=== PATIENT | female | born 1985 | race Caucasian/White ===

== ENCOUNTER 2023-08-05 21:51 | Inpatient (IN) | payer OTHER ==
[2023-08-05 23:06] VITALS: BMI 15.5
[2023-08-06] MEDS ORDERED: guaiFENesin 600 MG TABLET.ER (FP) PO PRN (00:04)
[2023-08-06] MEDS ORDERED: IBUPROFEN 400 MG TABLET (FP) PO PRN (00:04)
[2023-08-06] MEDS ORDERED: NICOTINE POLACRILEX 4 MG GUM BUC PRN (00:04)
[2023-08-06] MEDS ORDERED: NALOXONE HCL (KLOXXADO) 8 MG SPRAY NS PRN (00:04)
[2023-08-06] MEDS ORDERED: NALOXONE HCL 0.4 MG/ML VIAL IM PRN (00:04)
[2023-08-06] MEDS ORDERED: BENZOCAINE/MENTHOL (CHLORASEPTIC ) LOZENGE MM PRN (00:04)
[2023-08-06] MEDS ORDERED: DICYCLOMINE HCL 10 MG CAPSULE PO PRN (00:04)
[2023-08-06] MEDS ORDERED: MAGNESIUM HYDROX 2400MG/30ML ORAL SUSPENSION 30 ML CUP PO PRN (00:04)
[2023-08-06] MEDS ORDERED: LOPERAMIDE HCL 2 MG CAPSULE PO PRN (00:04)
[2023-08-06] MEDS ORDERED: ONDANSETRON *ODT* 4 MG TABLET SL PRN (00:04)
[2023-08-06] MEDS ORDERED: POLYETHYLENE GLYCOL (HEALTHYLAX) 3350 17 GM PACKET PO PRN (00:04)
[2023-08-06] MEDS ORDERED: BENZONATATE 200 MG CAPSULE PO PRN (00:04)
[2023-08-06] MEDS: PRENATAL VITAMINS W/ FOLIC ACID TABLET (FP) PO SCH (11:23)
[2023-08-06] MEDS: NICOTINE 14 MG/24 HOURS TOPICAL PATCH TD SCH (11:23)
[2023-08-06] MEDS: IBUPROFEN 600 MG TABLET (FP) PO PRN (19:06)
[2023-08-06] MEDS: THIAMINE HCL 100 MG TABLET (FP) PO SCH (22:21)
[2023-08-06] MEDS: MELATONIN 5 MG TABLETS PO SCH (22:21)
[2023-08-07] MEDS: PRENATAL VITAMINS W/ FOLIC ACID TABLET (FP) PO SCH (10:46)
[2023-08-07] MEDS: NICOTINE 14 MG/24 HOURS TOPICAL PATCH TD SCH (10:46)
[2023-08-07 10:50] LABS: HEMATOCRIT 37.7 % (32.4-45.2); HEMOGLOBIN 12.2 GM/dL (10.7-15.3); MCH 26.8 pg (25.7-33.7); MCHC 32.5 g/dl (32.0-36.0); MEAN CELL VOLUME 82.5 fl (80-96); MEAN PLT VOLUME 8.3 fl (7.5-11.1); PLATELET COUNT 428 10^3/uL (134-434); RBC 4.57 M/mm3 (3.60-5.2); RDW 19.7 % (11.6-15.6); WHITE BLOOD COUNT 8.9 K/mm3 (4.0-10.0)
[2023-08-07 10:53] LABS: POTASSIUM 4.7 mmol/L (3.5-5.1)
[2023-08-07 10:55] LABS: CALCIUM 9.3 mg/dL (8.5-10.1)
[2023-08-07 10:56] LABS: ALBUMIN 3.8 g/dl (3.4-5.0); BLOOD UREA NITROGEN 15.4 mg/dL (7-18)
[2023-08-07 10:59] LABS: CREATININE 0.6 mg/dL (0.55-1.3)
[2023-08-07 11:00] LABS: BILIRUBIN,TOTAL 0.5 mg/dL (0.2-1); TOT PROT 8.1 g/dl (6.4-8.2)
[2023-08-07] MEDS ORDERED: BUPRENORPHINE HCL 150 MCG, BUPRENORPHINE HCL 75 MCG BC ONE ×2 (15:56→18:15)
[2023-08-07] MEDS ORDERED: BUPRENORPHINE HCL 150 MCG, BUPRENORPHINE HCL 75 MCG BC PRN (15:56)
[2023-08-07] MEDS ORDERED: cloNIDine HCL 0.1 MG TABLET PO ONE ×2 (16:15→18:15)
[2023-08-07] MEDS: THIAMINE HCL 100 MG TABLET (FP) PO SCH (22:39)
[2023-08-07] MEDS: MELATONIN 5 MG TABLETS PO SCH (22:40)
[2023-08-08] MEDS ORDERED: BUPRENORPHINE HCL 150 MCG, BUPRENORPHINE HCL 75 MCG BC PRN
[2023-08-08] MEDS: diazePAM 5 MG TABLET PO PRN ×4 (01:38→23:45)
[2023-08-08] MEDS: BUPRENORPHINE HCL 150 MCG, BUPRENORPHINE HCL 75 MCG BC SCH ×2 (06:44→18:13)
[2023-08-08] MEDS: cloNIDine HCL 0.1 MG TABLET PO PRN (09:31)
[2023-08-08] MEDS: PRENATAL VITAMINS W/ FOLIC ACID TABLET (FP) PO SCH (09:31)
[2023-08-08] MEDS: NICOTINE 14 MG/24 HOURS TOPICAL PATCH TD SCH (09:32)
[2023-08-08] MEDS: IBUPROFEN 600 MG TABLET (FP) PO PRN (14:48)
[2023-08-08] MEDS: MAG HYDROX/AL HYDROX/SIMETH 30 ML UNIT-DOSE CUP PO PRN (18:33)
[2023-08-08] MEDS: BISMUTH SUBSALICYLATE 524 MG/30 ML PO PRN (21:20)
[2023-08-08] MEDS: MELATONIN 5 MG TABLETS PO SCH (22:29)
[2023-08-08] MEDS: THIAMINE HCL 100 MG TABLET (FP) PO SCH (22:29)
[2023-08-09] MEDS: MAG HYDROX/AL HYDROX/SIMETH 30 ML UNIT-DOSE CUP PO PRN (00:43)
[2023-08-09] MEDS: cloNIDine HCL 0.1 MG TABLET PO PRN ×3 (02:37→22:21)
[2023-08-09] MEDS: BISMUTH SUBSALICYLATE 524 MG/30 ML PO PRN (02:38)
[2023-08-09] MEDS: diazePAM 5 MG TABLET PO PRN ×2 (05:20→12:38)
[2023-08-09] MEDS: BUPRENORPHINE HCL 450 MCG FILM BC SCH ×2 (05:30→17:11)
[2023-08-09] MEDS: IBUPROFEN 600 MG TABLET (FP) PO PRN ×2 (07:39→22:59)
[2023-08-09] MEDS: NICOTINE 14 MG/24 HOURS TOPICAL PATCH TD SCH (09:26)
[2023-08-09] MEDS: PRENATAL VITAMINS W/ FOLIC ACID TABLET (FP) PO SCH (09:26)
[2023-08-09] MEDS: METHOCARBAMOL 750 MG TABLET PO PRN ×2 (10:41→19:18)
[2023-08-09] MEDS: ACETAMINOPHEN 325 MG TABLET (FP) PO PRN (13:39)
[2023-08-09] MEDS: hydrOXYzine PAMOATE 25 MG CAPSULE (FP) PO PRN (17:17)
[2023-08-09 22:02] VITALS: RESP 18
[2023-08-09] MEDS: MELATONIN 5 MG TABLETS PO SCH (22:19)
[2023-08-09] MEDS: THIAMINE HCL 100 MG TABLET (FP) PO SCH (22:20)
[2023-08-10] MEDS: ACETAMINOPHEN 325 MG TABLET (FP) PO PRN (01:06)
[2023-08-10] MEDS: hydrOXYzine PAMOATE 25 MG CAPSULE (FP) PO PRN ×2 (01:07→10:24)
[2023-08-10] MEDS: MAG HYDROX/AL HYDROX/SIMETH 30 ML UNIT-DOSE CUP PO PRN (02:14)
[2023-08-10] MEDS: IBUPROFEN 600 MG TABLET (FP) PO PRN (05:34)
[2023-08-10] MEDS ORDERED: BUPRENORPHINE/NALOXONE 4 MG/1 MG FILM PACKET SL SCH (06:00)
[2023-08-10] MEDS ORDERED: BUPRENORPHINE/NALOXONE 2 MG/0.5 MG FILM PACKET SL SCH ×2 (09:00→10:00)
[2023-08-10 09:04] VITALS: BP 112/68; PULSE 61; TEMP 97.3
[2023-08-10] MEDS: PRENATAL VITAMINS W/ FOLIC ACID TABLET (FP) PO SCH (09:48)
[2023-08-10] MEDS: NICOTINE 14 MG/24 HOURS TOPICAL PATCH TD SCH (10:23)
[2023-08-10] MEDS: METHOCARBAMOL 750 MG TABLET PO PRN (10:24)
[2023-08-11] MEDS ORDERED: BUPRENORPHINE/NALOXONE 8 MG/2 MG FILM PACKET SL ONE (06:00)
== END 2023-08-10 14:32 | disposition other institution (70) | DRG 773 ==
LOC: YASAS 21:51 → Y3N 08-06 01:48
PROVIDERS: ADMIT Allergy & Immunology; ATTEND Allergy & Immunology
PROC: HZ2ZZZZ Detoxification Services for Substance Abuse Treatment (ICD-10-PCS; principal; 2023-08-06)
DX: F11.23 Opioid dependence with withdrawal (principal); F14.20 Cocaine dependence, uncomplicated; F17.210 Nicotine dependence, cigarettes, uncomplicated; F19.24 Other psychoactive substance dependence with psychoactive substance-induced mood disorder; F41.9 Anxiety disorder, unspecified; R63.4 Abnormal weight loss; Z68.1 Body mass index [BMI] 19.9 or less, adult; Z91.199 Patient's noncompliance with other medical treatment and regimen due to unspecified reason
CPT/HCPCS: 36415; 80053; 80307; 81025; 85027; 86780; 87635; 87811; 93005; 93010